=== PATIENT | female | born 1980 | race Caucasian/White ===

== ENCOUNTER → 2017-06-27 | Outpatient (CLI) | payer OTHER | LOC: FIMAGING 12:50 | PROVIDERS: ATTEND Neurological Surgery | DX: M50.323 Other cervical disc degeneration at C6-C7 level (principal); M54.12 Radiculopathy, cervical region; D18.09 Hemangioma of other sites ==

== ENCOUNTER 2017-12-15 09:04 | Emergency (ER) | payer OTHER ==
[2017-12-15] MEDS ORDERED: NS 1,000 ML IV ONE (09:14)
--- NOTE | 2017-12-15 09:15 | EDPHY ---
H & P Stated Complaint: abd pain Time Seen by Provider: 12/15/17 09:09 HPI/ROS: CHIEF COMPLAINT: Abdominal pain nausea vomiting HISTORY OF PRESENT ILLNESS: 37-year-old female arrives via private vehicle complaining of abdominal pain which occurred yesterday. She describes epigastric discomfort which has now resolved however yesterday which she is experiencing discomfort she palpate her abdomen and felt a pulsatile mass, performed online research and specifically concerned about abdominal aortic aneurysm. She has no history of connective tissue disorder or family history of connective tissue disorder or vasculopathy. She is complaining of mild nausea. No back pain. No daily alcohol use. No vomiting. Bowel movements normal. No history of abdominal surgeries. PRIMARY CARE PROVIDER: REVIEW OF SYSTEMS: 10 systems reviewed and negative with the exception of the elements mentioned in the history of present illness PAST MEDICAL & SURGICAL HISTORY: no vasculopathy history, no connective tissue disorder history SOCIAL HISTORY: Nonsmoker. No drug use. PHYSICAL EXAM (Prior to examination, patient consented to physical exam, hands were washed and my usual and customary physical exam procedures followed) 1) GENERAL: Well-developed, well-nourished, alert and oriented. Appears to be in no acute distress. 2) HEAD: Normocephalic, atraumatic 3) HEENT: Pupils equal, round, reactive to light bilaterally. Sclera anicteric. Nasopharynx, oropharynx, clear, no lesions. Moist Mucous membranes. 4) NECK: Full range of motion, no meningeal signs. 5) LUNGS: Clear auscultation bilaterally, no wheezes, no rhonchi, no retractions. 6) HEART: Regular rate and rhythm, no murmur, no heave, no gallop. 7) ABDOMEN: No guarding, no rebound, I am able to appreciate aortic pulses, no pain no focal tenderness, negative McBurney's, negative Tran's, negative Rovsing's, negative peritoneal sign, 8) MUSCULOSKELETAL: Moving all extremities, no focal areas of tenderness, no obvious trauma. No peripheral edema or discoloration. 9) BACK: No CVA tenderness, no midline vertebral tenderness, no fluctuance, no step-off, no obvious trauma, no visual or palpable abnormality. 10) SKIN: No rash, no petechiae. 11) Psychiatric: Patient is oriented X 3, there is no agitation. DIFFERENTIAL DIAGNOSIS: My differential diagnosis includes, but is not limited to, acute appendicitis, acute cholecystitis, bowel obstruction, acute pancreatitis, ovarian torsion, ectopic , gastritis and urinary tract infection. The patient understands that this diagnosis is provisional and can never be 100% accurate. This is a partial list of diagnoses considered. These considerations are based on history, physical exam, past history and reassessment. - Personal History LMP (Females 10-55): Now Current Tetanus/Diphtheria Vaccine: Yes - Medical/Surgical History Hx Asthma: No Hx Chronic Respiratory Disease: No Hx Diabetes: No Hx Cardiac Disease: No Hx Renal Disease: No Hx Cirrhosis: No Hx Alcoholism: No Other PMH: Denies med/surg histroy, ovarian cysts - Social History Smoking Status: Former smoker Constitutional: Initial Vital Signs Temperature (C) 36.4 C 12/15/17 09:07 Heart Rate 93 12/15/17 09:07 Respiratory Rate 18 12/15/17 09:07 Blood Pressure 127/78 H 12/15/17 09:07 O2 Sat (%) 97 12/15/17 09:07 Allergies/Adverse Reactions: tree nut [Nuts] Allergy (Verified 12/15/17 09:11) Home Medications: Medication Instructions Recorded Cephalexin [Keflex] 500 mg PO TID 7 Days cap 12/15/17 Pantoprazole Sodium [Protonix 40mg 40 mg PO DAILY #30 tab 12/15/17 (RX)] Topamax 12/15/17 Medical Decision Making - Diagnostics Imaging Results: Imaging Impressions Abdomen/Pelvis Ultrasound 12/15/17 09:29 Impression: Normal caliber aorta with no visible aneurysm. Findings discussed with Margarito Evans 12/15/2017 at 10:10. Images reviewed myself ED Course/Re-evaluation: 9:47 a.m.: Will obtain diagnostic studies. Patient is specifically concerned about abdominal aortic aneurysm. Agree to obtain ultrasound. I saw this patient independently based on established practice protocols. Care of patient under supervision of secondary supervising physician Dr Monae with whom I discussed case. 10:19 a.m.: Re-evaluation, she is resting comfortably. Discussed her diagnostic results. She has no evidence of abdominal aortic aneurysm, is normal caliber aorta. She has no evidence of acute pancreatitis. Doubt acute cholecystitis. Discussed possibility of gastritis which cannot be fully ruled in or she feels comfortable ruled out at this time. I have given her GI cocktail as she notes that she ate pizza preceding this discomfort. I have discussed my usual customary dietary precautions. I recommended initiation of proton pump inhibitor. She is also noted to have 1+ leukocytes 10 15 WBCs on urinalysis. Urine will be cultured started on Keflex. Doubt pyelonephritis. Doubt cardiac pathology in absence of risk factors. Usual and customary discharge precautions instructions provided. She feels comfortable being discharged. All questions and concerns addressed by myself. - Data Points Laboratory Results: Laboratory Results 12/15/17 09:24 12/15/17 09:24 12/15/17 12/15/17 12/15/17 09:24 09:24 09:24 WBC 6.75 10^3/uL 10^3/uL (3.80-9.50) RBC 4.81 10^6/uL 10^6/uL (4.18-5.33) Hgb 15.5 g/dL g/dL (12.6-16.3) Hct 45.4 % % (38.0-47.0) MCV 94.4 fL fL (81.5-99.8) MCH 32.2 pg pg (27.9-34.1) MCHC 34.1 g/dL g/dL (32.4-36.7) RDW 12.0 % % (11.5-15.2) Plt Count 216 10^3/uL 10^3/uL (150-400) MPV 10.2 fL fL (8.7-11.7) Neut % (Auto) 59.3 % % (39.3-74.2) Lymph % (Auto) 27.3 % % (15.0-45.0) Morgan % (Auto) 6.1 % % (4.5-13.0) Eos % (Auto) 5.8 % % (0.6-7.6) Baso % (Auto) 1.2 % % (0.3-1.7) Nucleat RBC Rel Count 0.0 % % (0.0-0.2) Absolute Neuts (auto) 4.01 10^3/uL 10^3/uL (1.70-6.50) Absolute Lymphs (auto) 1.84 10^3/uL 10^3/uL (1.00-3.00) Absolute Monos (auto) 0.41 10^3/uL 10^3/uL (0.30-0.80) Absolute Eos (auto) 0.39 10^3/uL 10^3/uL (0.03-0.40) Absolute Basos (auto) 0.08 10^3/uL 10^3/uL (0.02-0.10) Absolute Nucleated RBC 0.00 10^3/uL 10^3/uL (0-0.01) Immature Gran % 0.3 % % (0.0-1.1) Immature Gran # 0.02 10^3/uL 10^3/uL (0.00-0.10) Sodium 141 mEq/L mEq/L (135-145) Potassium 3.6 mEq/L mEq/L (3.3-5.0) Chloride 105 mEq/L mEq/L (97-110) Carbon Dioxide 21 mEq/l L mEq/l (22-31) Anion Gap 15 mEq/L mEq/L (8-16) BUN 22 mg/dL mg/dL (7-23) Creatinine 1.1 mg/dL H mg/dL (0.6-1.0) Estimated GFR 56 Glucose 91 mg/dL mg/dL (70-100) Calcium 10.0 mg/dL mg/dL (8.5-10.4) Total Bilirubin 0.6 mg/dL mg/dL (0.1-1.4) Conjugated Bilirubin 0.2 mg/dL mg/dL (0.0-0.5) Unconjugated Bilirubin 0.4 mg/dL mg/dL (0.0-1.1) AST 24 IU/L IU/L (14-46) ALT 25 IU/L IU/L (9-52) Alkaline Phosphatase 63 IU/L IU/L (38-126) Total Protein 7.8 g/dL g/dL (6.3-8.2) Albumin 4.7 g/dL g/dL (3.5-5.0) Lipase 181 IU/L IU/L (23-300) Beta HCG, Qual NEGATIVE Urine Color Urine Appearance Urine pH Ur Specific [place] Urine Protein Urine Ketones Urine Blood Urine Nitrate Urine Bilirubin Urine Urobilinogen Ur Leukocyte Esterase Urine RBC Urine WBC Ur Epithelial Cells Urine Mucus Urine Glucose 12/15/17 09:17 WBC RBC Hgb Hct MCV MCH MCHC RDW Plt Count MPV Neut % (Auto) Lymph % (Auto) Morgan % (Auto) Eos % (Auto) Baso % (Auto) Nucleat RBC Rel Count Absolute Neuts (auto) Absolute Lymphs (auto) Absolute Monos (auto) Absolute Eos (auto) Absolute Basos (auto) Absolute Nucleated RBC Immature Gran % Immature Gran # Sodium Potassium Chloride Carbon Dioxide Anion Gap BUN Creatinine Estimated GFR Glucose Calcium Total Bilirubin Conjugated Bilirubin Unconjugated Bilirubin AST ALT Alkaline Phosphatase Total Protein Albumin Lipase Beta HCG, Qual Urine Color YELLOW Urine Appearance HAZY Urine pH 5.0 (5.0-7.5) Ur Specific [place] 1.015 (1.002-1.030) Urine Protein NEGATIVE (NEGATIVE) Urine Ketones 1+ H (NEGATIVE) Urine Blood 3+ H (NEGATIVE) Urine Nitrate NEGATIVE (NEGATIVE) Urine Bilirubin NEGATIVE (NEGATIVE) Urine Urobilinogen NEGATIVE EU EU (0.2-1.0) Ur Leukocyte Esterase 1+ H (NEGATIVE) Urine RBC 1-3 /hpf /hpf (0-3) Urine WBC 10-15 /hpf H /hpf (0-3) Ur Epithelial Cells TRACE /lpf /lpf (NONE-1+) Urine Mucus TRACE /lpf /lpf (NONE-1+) Urine Glucose NEGATIVE (NEGATIVE) Medications Given: Discontinued Medications Sodium Chloride (Ns) 1,000 mls @ 0 mls/hr IV EDNOW ONE; Wide Open PRN Reason: Protocol Stop: 12/15/17 09:15 Last Admin: 12/15/17 09:27 Dose: 1,000 mls Departure - Departure Disposition: Home, Routine, Self-Care Clinical Impression: Epigastric abdominal pain Urinary tract infection Qualifiers: Urinary tract infection type: acute cystitis Hematuria presence: with hematuria Qualified Code(s): N30.01 - Acute cystitis with hematuria Condition: Good Instructions: Epigastric Pain (ED), Urinary Tract Infection in Women (ED) Referrals: Mer Anderson MD [Primary Care Provider] - 1-2 days without fail Prescriptions: Cephalexin [Keflex] 500 mg PO TID 7 Days cap Pantoprazole Sodium [Protonix 40mg (RX)] 40 mg PO DAILY #30 tab
[2017-12-15 09:33] LABS: PLATELET COUNT 216 10^3/uL (150-400)
[2017-12-15] MEDS ORDERED: MAG HYDROX/AL HYDROX/SIMETH 30 ML UDCUP PO ONE (10:16)
[2017-12-15] MEDS ORDERED: HYOSCYAMINE SULFATE 0.125 MG TAB PO ONE (10:16)
[2017-12-15 10:34] VITALS: BP 108/67
== END 2017-12-15 10:39 | disposition home or self-care (01) ==
DX: R10.13 Epigastric pain (principal); N30.01 Acute cystitis with hematuria